=== PATIENT | female | born 1945 ===

== ENCOUNTER 2018-11-06 17:07 | Inpatient (IN) | payer MEDICARE ==
[2018-11-06 18:19] LABS: BASO # 0.1 K/uL (0.0-0.2); BASO % 0.8 % (0.0-2.0); EOS # 0.2 K/uL (0.0-0.7); HEMOGLOBIN 14.2 g/dL (12.0-16.0); LYMPH # 3.5 K/uL (1.0-4.3); LYMPH % 43.4 % (20.0-40.0); MEAN CELL VOLUME 97.9 fl (81.0-99.0); MEAN CORPUSCULAR HEMOGLOBIN 32.5 pg (27.0-31.0); MEAN CORPUSCULAR HGB CONC 33.2 g/dL (33.0-37.0); MONO # 0.7 K/uL (0.0-0.8); MONO % 8.1 % (0.0-10.0); NEUT # 3.7 K/uL (1.8-7.0); NEUT % 45.7 % (50.0-75.0); NRBC % 0.1 % (0.0-0.0); RBC 4.38 Mil/uL (3.80-5.20); RED CELL DISTRIBUTION WIDTH 13.1 % (11.5-14.5); WHITE BLOOD COUNT 8.1 K/uL (4.8-10.8)
[2018-11-06 18:25] LABS: PROTHROMBIN TIME 10.9 Seconds (9.8-13.1)
[2018-11-06 18:28] LABS: PARTIAL THROMBOPLASTIN TIME 27.4 Seconds (25.6-37.1)
[2018-11-06 18:30] LABS: D DIMER < 200 ng/mlDDU (0-230)
--- NOTE | 2018-11-06 18:32 | ED PDOC ---
Syncope/Near Syncope/Dizziness Time Seen by Provider: 11/06/18 17:30 Chief Complaint (Nursing): Dizziness/Lightheaded Chief Complaint (Provider): Dizziness/Lightheaded History Per: Patient History/Exam Limitations: no limitations Onset/Duration Of Symptoms: Days (x14) Current Symptoms Are (Timing): Still Present Additional Complaint(s): 72 y/o female with a PMHx of HTN presents to the ED for evaluation of dizziness, onset two weeks ago. Patient describes dizziness as feeling like she is going to fall. Patient states dizziness worsens when getting up from the bed. Patient reports dizziness is associated with generalized fatigue and a mild exercise intolerance. Patient additionally reports of a similar episode in the middle of September that was followed by a URI that only lasted three days and resolved spontaneously. Patient states symptoms have worsened this time. Of note, patient was seen by her PMD today who sent her here for further evaluation of Rapid At rial Fibrillation found on outpatient EKG. Denies shortness of breath, chest pain, palpitations, nausea and vomiting. PMD: [facility] Past Medical History Reviewed: Historical Data, Nursing Documentation, Vital Signs Vital Signs: Last Vital Signs Temp 98.2 F 11/06/18 17:16 Pulse 92 H 11/06/18 18:24 Resp 19 11/06/18 18:24 BP 108/64 11/06/18 18:24 Pulse Ox 99 11/06/18 18:24 - Medical History PMH: HTN, Hypothyroidism - Surgical History Surgical History: Back Surgery - Family History Family History: States: Hypertension - Social History Current smoker - smoking cessation education provided: No Alcohol: None Drugs: Denies - Home Medications Home Medications: Ambulatory Orders Medication Instructions Recorded Febuxostat [Uloric] 40 mg PO DAILY 11/06/18 Lisinopril [Zestril] 20 mg PO DAILY 11/06/18 - Allergies Allergies/Adverse Reactions: Allergies Allergy/AdvReac Type Severity Reaction Status Date / Time No Known Allergies Allergy Verified 11/06/18 17:29 Review of Systems ROS Statement: Except As Marked, All Systems Reviewed And Found Negative (as per HPI) Constitutional: Positive for: Other (generalized fatigue and mild exercis intolerance) Cardiovascular: Negative for: Chest Pain, Palpitations Respiratory: Negative for: Shortness of Breath Gastrointestinal: Negative for: Nausea, Vomiting Neurological: Positive for: Dizziness Physical Exam - Reviewed Nursing Documentation Reviewed: Yes Vital Signs Reviewed: Yes - Physical Exam Appears: Positive for: No Acute Distress (but tired) Head Exam: Positive for: ATRAUMATIC, NORMOCEPHALIC Skin: Positive for: Warm, Dry Eye Exam: Positive for: EOMI, PERRL. Negative for: Nystagmus ENT: Positive for: Normal ENT Inspection Neck: Positive for: Painless ROM, Supple Cardiovascular/Chest: Positive for: Tachycardia, Irregularly Irregular Respiratory: Positive for: Normal Breath Sounds. Negative for: Wheezing, Respiratory Distress Gastrointestinal/Abdominal: Positive for: Soft. Negative for: Tenderness Back: Positive for: Normal Inspection. Negative for: Muscle Spasm Extremity: Negative for: Pedal Edema Lymphatic: Negative for: Adenopathy Neurologic/Psych: Positive for: Alert, medical sociologist II-XII (intact), Oriented (x3). Negative for: Motor/Sensory Deficits, Other (Head Impulse Test and Test of Skew) - Laboratory Results Result Diagrams: 11/06/18 17:50 11/06/18 17:50 - ECG ECG Rhythm: Positive for: Atrial Fibrillation (with RVR ) Interpretation Of Abn EKG: Proxasymal Atrial Fibrillation O2 Sat by Pulse Oximetry: 99 (RA) Pulse Ox Interpretation: Normal - Critical Care Total Time (In Min): 30 Documented Critical Care: Time excludes all time spent performint seperately billable procedures Medical Decision Making Medical Decision Making: Time: 1731 Impression: New Onset Atrial Fibrillation Plan: -- Type and Screen -- EKG -- B-Type Natriuretic Peptide -- CMP -- Magnesium -- Phosphorus -- Thyroid Stimulating Hormone -- Troponin I -- ED Urine Dipstick -- CBC with Differentials -- D Dimer -- PTT -- Prothrombin Time -- Nurse Plastics -- IV Insertion Time: 1803 Plan: -- Sodium Chloride 0.9% 100 ml Cardizem 125 mg IV 5 mg/hr -- Cardizem 10 mg IVP Time: 1810 Plan: -- CT Head w/o Contrast -- Antivert 50 mg PO Time: 1903 CT RESULTS FINDINGS: BRAIN No acute intraparenchymal hemorrhage. No mass lesion. No CT evidence for acute territorial infarct. No midline shift or extra-axial collections. VENTRICLES: No hydrocephalus. ORBITS: The orbits are unremarkable. SINUSES AND MASTOIDS: The paranasal sinuses and mastoid air cells are clear. BONES: No fracture. SOFT TISSUES: Unremarkable. IMPRESSION: No acute intracranial abnormality. Electronically signed on Nov 06, 2018 7:04:47 PM EST by: Edgar Castano M.D., Certified by [facility], Diagnostic Radiology Time: 1955 -- Spoke to Dr. Kearns, medical service for hospitalization. No emergently significant lab abnormalities noted at this time. -- XR demonstrates no acute findings. Scribe Attestation: Documented by Cadence Brown, acting as a scribe for Lydia Reeves MD. Provider Scribe Attestation: All medical record entries made by the Scribe were at my direction and personally dictated by me. I have reviewed the chart and agree that the record accurately reflects my personal performance of the history, physical exam, medical decision making, and the department course for this patient. I have also personally directed, reviewed, and agree with the discharge instructions and disposition. Disposition - Clinical Impression Clinical Impression: Atrial fibrillation, Dizziness Counseled Patient/Family Regarding: Studies Performed, Diagnosis, Need For Followup - Disposition Disposition Time: 18:00 Condition: FAIR - Pt Status Changed To: Hospital Disposition Of: Inpatient - Admit Certification Admit to Inpatient:: After my assessment, the patient will require hospitalization for at least two midnights. This is because of the severity of symptoms shown, intensity of services needed, and/or the medical risk in this patient being treated as an outpatient. - POA Present On Arrival: None
[2018-11-06 18:42] LABS: B-TYPE NATRIURETIC PEPTIDE 472 pg/ml (0-900)
[2018-11-06 18:47] LABS: ALBUMIN 4.2 g/dL (3.5-5.0); ALT/SGPT 39 U/L (9-52); AST/SGOT 41 U/L (14-36); BLOOD UREA NITROGEN 24 mg/dl (7-17); CALCIUM 9.8 mg/dL (8.4-10.2); GFR NON-AFRICAN AMERICAN 40
[2018-11-07 06:47] LABS: URIC ACID 6.1 mg/Dl (2.2-7.5)
[2018-11-07 07:05] LABS: T4 6.51 ug/dl (5.5-11.0)
[2018-11-07 07:18] LABS: T3 0.98 nmol/L (1.49-2.60)
[2018-11-07] MEDS: Enoxaparin 30 mg Syringe SC SCH (10:55)
[2018-11-07] MEDS: Digoxin 125 mcg (0.125 mg) Tab PO SCH (11:01)
--- NOTE | 2018-11-07 12:04 | CP.PCM.CON ---
History of Present Illness - History of Present Illness History of Present Illness: I was asked to see patient by Dr Kearns. Patient seen 11/07/18 2265 Patient is a 72 year old female with HTN hypercholesterolemia who presents with 2 weeks aof dizziness and lighheadedness. The patient felt progressively worse and went to her primary medical doctor. She was found to be in atrial fibrillation with rapid ventricular response. She was started on cardizem drip. Her heart rate improved overnight. She denies current chest pain or dyspnea. Review of Systems - Constitutional Constitutional: absent: As Per HPI, Anorexia, Chills, Daytime Sleepiness, Excessive Sweating, Fatigue, Fever, Frequent Falls, Headache, Increased Appetite, Lethargy, Malaise, Night Sweats, Snoring, Sleep Apnea, Weight Gain, Weight Loss, Weakness, Other - EENT Eyes: absent: As Per HPI, Blind Spots, Blurred Vision, Change in Vision, D ecreased Night Vision, Diplopia, Discharge, Dry Eye, Exophthalmos, Floaters, Irritation, Itchy Eyes, Loss of Peripheral Vision, Pain, Photophobia, Requires Corrective Lenses, Sees Flashes, Spots in Vision, Tunnel Vision, Other Visual Disturbances, Loss of Vision, Other Ears: absent: As Per HPI, Decreased Hearing, Ear Discharge, Ear Pain, Tinnitus, Abnormal Hearing, Disequilibrium, Dizziness, Other Nose/Mouth/Throat: absent: As Per HPI, Epistaxis, Nasal Congestion, Nasal Discharge, Nasal Obstruction, Nasal Trauma, Nose Pain, Post Nasal Drip, Sinus Pain, Sinus Pressure, Bleeding Gums, Change in Voice, Dental Pain, Dry Mouth, Dysphagia, Halitosis, Hoarsness, Lip Swelling, Mouth Lesions, Mouth Pain, Odynophagia, Sore Throat, Throat Swelling, Tongue Swelling, Facial Pain, Neck Pain, Neck Mass, Other - Breasts Breasts: absent: As Per HPI, Change in Shape, Mass, Pain, Nipple Discharge, Nipple Inversion, Skin Changes, Swelling, Other - Cardiovascular Cardiovascular: Dyspnea - Respiratory Respiratory: absent: As Per HPI, Cough, Dyspnea, Hemoptysis, Dyspnea on Exertion, Wheezing, Snoring, Stridor, Pain on Inspiration, Chest Congestion, Excessive Mucous Production, Change in Mucous Color, Pain with Coughing, Other - Gastrointestinal Gastrointestinal: absent: As Per HPI, Abdominal Pain, Belching, Bloating, Change in Bowel Habits, Change in Stool Character, Coffee Ground Emesis, Constipation, Cramping, Diarrhea, Dyspepsia, Dysphagia, Early Satiety, Excessive Flatus, Fecal Incontinence, Heartburn, Hematemesis, Hematochezia, Loose Stools, Melena, Nausea, Odynophagia, Temesmus, Vomiting, Other - Genitourinary Genitourinary: absent: As Per HPI, Change in Urinary Stream, Difficulty Urinating, Dysuria, Flank Pain, Hematuria, Pyuria, Nocturia, Urinary Incontinence, Urinary Frequency, Urinary Hesitance, Urinary Urgency, Voiding Freq/Small Amts, Freq UTI, Hx Renal/Bladder Calculi, Hx /Renal Surgery, Bladder Distension, Other - Musculoskeletal Musculoskeletal: absent: As Per HPI, Abnormal Gait, Arthralgias, Atrophy, Back Pain, Deformity, Joint Swelling, Limited Range of Motion, Loss of Height, Muscle Cramps, Muscle Weakness, Myalgias, Neck Pain, Numbness, Radiating Pain into Limb, Stiffness, Tingling, Other - Integumentary Integumentary: absent: As Per HPI, Acne, Alopecia, Bleeding Lesions, Change in Hair, Change in Nails, Change in Pigmentation, Changing Lesions, Dry Skin, Erythema, Furuncle, Hirsutism, Lesions, New Lesions, Non-Healing Lesions, Photosensitivity, Pruritus, Rash, Skin Pain, Skin Ulcer, Sores, Striae, Swelling, Unusual Bruising, Wounds, Jaundice, Other - Neurological Neurological: Dizziness - Psychiatric Psychiatric: absent: As Per HPI, Abnormal Sleep Pattern, Anhedonia, Anxiety, Auditory Hallucinations, Behavioral Changes, Change in Appetite, Change in Libido, Confusion, Depression, Difficulty Concentrating, Hallucinations, Homicidal Ideation, Hopelessness, Irritability, Memory Loss, Mood Swings, Panic Attacks, Paranoia, Suicidal Ideation, Visual Hallucinations, Tactile Hallucinations, Other - Endocrine Endocrine: absent: As Per HPI, Change in Body Appearance, Change in Libido, Cold Intolorance, Deepening of Voice, Excessive Sweating, Fatigue, Flushing, Heat Intolorance, Increase in Ring/Shoe/Hat Size, Palpitations, Polydipsia, Polyphagia, Polyuria, Other - Hematologic/Lymphatic Hematologic: absent: As Per HPI, Easy Bleeding, Easy Bruising, Lymphadenopathy, Other Past Patient History - Tetanus Immunizations Tetanus Immunization: Unknown - Past Medical History & Family History Past Medical History?: Yes - Past Social History Alcohol: None Drugs: Denies - CARDIAC Hx Hypertension: Yes - PULMONARY Hx Respiratory Disorders: No - NEUROLOGICAL Hx Neurological Disorder: No - HEENT Hx HEENT Problems: No - RENAL Hx Chronic Kidney Disease: No - ENDOCRINE/METABOLIC Hx Hypothyroidism: Yes - HEMATOLOGICAL/ONCOLOGICAL Hx Blood Disorders: No - INTEGUMENTARY Hx Dermatological Problems: No - MUSCULOSKELETAL/RHEUMATOLOGICAL Hx Musculoskeletal Disorders: Yes (Gouty arthritis) Hx Falls: No - GASTROINTESTINAL Hx Gastrointestinal Disorders: No - GENITOURINARY/GYNECOLOGICAL Hx Genitourinary Disorders: No - PSYCHIATRIC Hx Psychophysiologic Disorder: No - SURGICAL HISTORY Hx Arthroscopy: Yes (left knee Dec 2014) - ANESTHESIA Hx Anesthesia: Yes Hx Anesthesia Reactions: No Hx Malignant Hyperthermia: No Meds Allergies/Adverse Reactions: Allergies Allergy/AdvReac Type Severity Reaction Status Date / Time No Known Allergies Allergy Verified 11/06/18 17:29 - Medications Medications: Current Medications Acetaminophen (Tylenol 325mg Tab) 650 mg PO Q6 PRN PRN Reason: Pain, Mild (1-3) Digoxin (Digoxin) 0.125 mg PO DAILY [facility] Last Admin: 11/07/18 11:01 Dose: 0.125 mg Diltiazem HCl (Cardizem Cd) 180 mg PO DAILY [facility] Enoxaparin Sodium (Lovenox) 30 mg SC DAILY [facility]; Protocol Last Admin: 11/07/18 10:55 Dose: 30 mg Diltiazem HCl 125 mg/ Sodium (Chloride) 125 mls @ 5 mls/hr IV .Q24H ONE; Protocol Stop: 11/07/18 18:29 Last Admin: 11/06/18 18:31 Dose: 5 mg/hr, 5 mls/hr Physical Exam - Constitutional Appears: Non-toxic - Head Exam Head Exam: NORMAL INSPECTION - Eye Exam Eye Exam: Normal appearance - ENT Exam ENT Exam: Mucous Membranes Moist - Neck Exam Neck exam: Positive for: Full Rom - Respiratory Exam Respiratory Exam: NORMAL BREATHING PATTERN - Cardiovascular Exam Cardiovascular Exam: Irregular Rhythm - GI/Abdominal Exam GI & Abdominal Exam: Normal Bowel Sounds - Rectal Exam Rectal Exam: Deferred - Extremities Exam Extremities exam: Positive for: normal inspection, pedal pulses present. Negative for: joint swelling, pedal edema, tenderness - Back Exam Back exam: NORMAL INSPECTION - Neurological Exam Neurological exam: Alert, Oriented x3 - Psychiatric Exam Psychiatric exam: Normal Affect - Skin Skin Exam: Normal Color Results - Vital Signs Recent Vital Signs: Last Vital Signs Temp 97.6 F 11/07/18 08:13 Pulse 75 11/07/18 09:00 Resp 18 11/07/18 08:13 BP 107/58 L 11/07/18 08:13 Pulse Ox 99 11/07/18 08:13 - Labs Result Diagrams: 11/06/18 17:50 11/06/18 17:50 Labs: Laboratory Results - last 24 hr 11/06/18 11/06/18 11/06/18 17:50 17:50 17:50 WBC 8.1 RBC 4.38 Hgb 14.2 Hct 42.9 MCV 97.9 MCH 32.5 H MCHC 33.2 RDW 13.1 Plt Count 144 MPV 10.0 Neut % (Auto) 45.7 L Lymph % (Auto) 43.4 H [place] % (Auto) 8.1 Eos % (Auto) 2.0 Baso % (Auto) 0.8 Neut # (Auto) 3.7 Lymph # (Auto) 3.5 [place] # (Auto) 0.7 Eos # (Auto) 0.2 Baso # (Auto) 0.1 PT 10.9 INR 1.0 APTT 27.4 D-Dimer, Quantitative < 200 Sodium 141 Potassium 5.0 Chloride 108 H Carbon Dioxide 24 Anion Gap 14 BUN 24 H Creatinine 1.3 H Est GFR ( Amer) 49 Est GFR (Non-Af Amer) 40 Random Glucose 102 Uric Acid Calcium 9.8 Phosphorus 4.3 Magnesium 2.1 Total Bilirubin 0.5 AST 41 H D ALT 39 Alkaline Phosphatase 130 H D Troponin I < 0.0120 NT-Pro-B Natriuret Pep 472 Total Protein 8.3 H Albumin 4.2 Globulin 4.1 H Albumin/Globulin Ratio 1.0 Triglycerides Cholesterol LDL Cholesterol Direct HDL Cholesterol Thyroxine (T4) Total T3 TSH 3rd Generation 6.43 H Blood Type Blood Type Confirm Antibody Screen BBK History Checked 11/06/18 11/06/18 11/07/18 17:50 19:26 05:30 WBC RBC Hgb Hct MCV MCH MCHC RDW Plt Count MPV Neut % (Auto) Lymph % (Auto) [place] % (Auto) Eos % (Auto) Baso % (Auto) Neut # (Auto) Lymph # (Auto) [place] # (Auto) Eos # (Auto) Baso # (Auto) PT INR APTT D-Dimer, Quantitative Sodium Potassium Chloride Carbon Dioxide Anion Gap BUN Creatinine Est GFR ( Amer) Est GFR (Non-Af Amer) Random Glucose Uric Acid 6.1 Calcium Phosphorus Magnesium Total Bilirubin AST ALT Alkaline Phosphatase Troponin I NT-Pro-B Natriuret Pep Total Protein Albumin Globulin Albumin/Globulin Ratio Triglycerides 119 Cholesterol 189 LDL Cholesterol Direct 123 HDL Cholesterol 47 Thyroxine (T4) 6.51 Total T3 0.980 L TSH 3rd Generation 5.34 H Blood Type O POSITIVE Blood Type Confirm O POSITIVE Antibody Screen Negative BBK History Checked No verified bt - EKG Data EKG Interpreted by: Myself Assessment & Plan (1) Atrial fibrillation Assessment and Plan: new onset and likely contributor to the patient's symptoms. Recommend change to oral cardizem. rate is controlled. needs echocardiogram to assess LV function. furhte rmanagement based upon echo. Status: Acute
--- NOTE | 2018-11-07 12:15 | CT ---
Date of service: 11/06/2018 PROCEDURE: CT HEAD WITHOUT CONTRAST. HISTORY: DIZZINESS HEADACHE COMPARISON: None available. TECHNIQUE: Axial computed tomography images were obtained through the head/brain without intravenous contrast. Radiation dose: Total exam DLP = 906.0 mGy-cm. This CT exam was performed using one or more of the following dose reduction techniques: Automated exposure control, adjustment of the mA and/or kV according to patient size, and/or use of iterative reconstruction technique. FINDINGS: HEMORRHAGE: No intracranial hemorrhage. BRAIN: There appears to be some very mild chronic periventricular white matter ischemic changes extending peripherally into the deep and subcortical white matter both cerebral hemispheres. Few scattered chronic bilateral basal nuclei lacunar type infarcts also present. Note the possibility of a small hyperacute infarct cannot be excluded on this exam the the. Clinical correlation recommended Mild vascular calcifications both carotid siphons the left vertebral artery. VENTRICLES: No obstructive hydrocephalus. CALVARIUM: Unremarkable. PARANASAL SINUSES: Diminutive appearing right maxillary sinus likely congenital and/or developmental.. Frontal sinuses hypoplastic. MASTOID AIR CELLS: Well-developed and currently well-aerated. OTHER FINDINGS: None. IMPRESSION: Mild chronic white matter and few scattered chronic bilateral basal nuclei lacunar type infarcts. Note that the possibility of a small hyperacute infarct cannot be excluded on this study..
[2018-11-07] MEDS: diltiaZEM 180 mg/24 Hours CD Cap PO SCH (13:09)
--- NOTE | 2018-11-07 14:11 | RAD ---
Date of service: 11/06/2018 HISTORY: New onset afib COMPARISON: No prior. FINDINGS: LUNGS: Mild bibasilar atelectasis left greater than right; developing lower lobe infiltrates could be excluded with follow-up radiographs. PLEURA: No significant pleural effusion identified, no pneumothorax apparent. CARDIOVASCULAR: Mild aortic atherosclerotic calcification present. Normal cardiac size. No pulmonary vascular congestion. OSSEOUS STRUCTURES: Mild multilevel degenerative spondylosis of the thoracic spine.. VISUALIZED UPPER ABDOMEN: Normal. OTHER FINDINGS: None. IMPRESSION: No active disease.
--- NOTE | 2018-11-07 20:06 | CARD ---
APPROVED REPORT Date of service: 11/06/2018 EKG Measurement Heart [id number] <Conclusion> Sinus rhythm with short runs of atrial fibrillation and consecutive premature atrial complexes. Abnormal Electrocardiogram
--- NOTE | 2018-11-07 20:57 | CARD ---
APPROVED REPORT Date of service: 11/06/2018 EKG Measurement Heart [id number] <Conclusion> Sinus rhythm with short runs of atrial fibrillation and premature atrial complexes. Abnormal Electrocardiogram
--- NOTE | 2018-11-08 07:40 | CP.PCM.HP ---
History of Present Illness - History of Present Illness History of Present Illness: This is a 72 y/o female with hx of HTN and hyperlipidemia admitted for 2 weeks on and off dizziness and noted have new onset atrial fibrillation with RVR by her PMD hence was sent to [facility] for further evaluation. She denies chest pain or SOB. Past Patient History - Tetanus Immunizations Tetanus Immunization: Unknown - Past Medical History & Family History Past Medical History?: Yes - Past Social History Alcohol: None Drugs: Denies - CARDIAC Hx Hypertension: Yes - PULMONARY Hx Respiratory Disorders: No - NEUROLOGICAL Hx Neurological Disorder: No - HEENT Hx HEENT Problems: No - RENAL Hx Chronic Kidney Disease: No - ENDOCRINE/METABOLIC Hx Hypothyroidism: Yes - HEMATOLOGICAL/ONCOLOGICAL Hx Blood Disorders: No - INTEGUMENTARY Hx Dermatological Problems: No - MUSCULOSKELETAL/RHEUMATOLOGICAL Hx Musculoskeletal Disorders: Yes (Gouty arthritis) Hx Falls: No - GASTROINTESTINAL Hx Gastrointestinal Disorders: No - GENITOURINARY/GYNECOLOGICAL Hx Genitourinary Disorders: No - PSYCHIATRIC Hx Psychophysiologic Disorder: No - SURGICAL HISTORY Hx Arthroscopy: Yes (left knee Dec 2014) - ANESTHESIA Hx Anesthesia: Yes Hx Anesthesia Reactions: No Hx Malignant Hyperthermia: No Meds Allergies/Adverse Reactions: Allergies Allergy/AdvReac Type Severity Reaction Status Date / Time No Known Allergies Allergy Verified 11/06/18 17:29 Results - Vital Signs Recent Vital Signs: Last Vital Signs Temp 98.6 F 11/08/18 05:26 Pulse 62 11/08/18 05:26 Resp 18 11/08/18 05:26 BP 112/65 11/08/18 05:26 Pulse Ox 98 11/08/18 05:26 - Labs Result Diagrams: 11/06/18 17:50 11/06/18 17:50
[2018-11-08 07:55] VITALS: RESP 20
[2018-11-08] MEDS: Enoxaparin 30 mg Syringe SC SCH (09:39)
[2018-11-08] MEDS: diltiaZEM 180 mg/24 Hours CD Cap PO SCH (09:39)
[2018-11-08 09:44] VITALS: PULSE 80
[2018-11-08] MEDS: Digoxin 125 mcg (0.125 mg) Tab PO SCH (09:44)
--- NOTE | 2018-11-08 11:40 | CP.PCM.PCO ---
Assessment/Plan - Assessment and Plan (Free Text) Assessment: Patient seen and examined Denied chest pain, shortness of breath converted from Afib to SR with PACS, Plan discussed with Dr Kearns and Dr De La Cruz, cont cardizem PO daily follow up outpatient for echo recommendations with Dr De La Cruz and further manag ement.
[2018-11-08 12:04] VITALS: BP 124/85; PULSE 85; TEMP 98.3; O2SAT 96
--- NOTE | 2018-11-09 02:58 | CARD ---
APPROVED REPORT Date of service: 11/08/2018 EXAM: Two-dimensional and M-mode echocardiogram with Doppler and color Doppler. Other Information Quality : GoodRhythm : Atrial Fibrillation INDICATION Atrial Fibrillation 2D DIMENSIONS IVSd0.92 (0.7-1.1cm)LVDd4.37 (3.9-5.9cm) LVOT Diameter2.24 (1.8-2.4cm)PWd0.87 (0.7-1.1cm) IVSs1.23 (0.8-1.2cm)LVDs2.56 (2.5-4.0cm) FS (%) 41.4 %PWs1.18 (0.8-1.2cm) M-Mode DIMENSIONS Left Atrium (MM)3.94 (2.5-4.0cm)IVSd0.61 (0.7-1.1cm) Aortic Root3.25 (2.2-3.7cm)LVDd4.85 (4.0-5.6cm) Aortic Cusp Exc.1.38 (1.5-2.0cm)PWd0.97 (0.7-1.1cm) IVSs0.94 cmFS (%) 22 % LVDs3.81 (2.0-3.8cm)PWs1.16 cm Mitral Valve E/A ratio0.0 TDI E/Lateral E'0.0E/Medial E'0.0 Tricuspid Valve TR Peak [id number] [id number] Peak Gr.27mmHg [id number] LEFT VENTRICLE The left ventricle is normal size. There is normal left ventricular wall thickness. The left ventricular systolic function is normal. The estimated ejection fraction is 60-65% No regional wall motion abnormalities noted.. The left ventricular diastolic function cannot be assessed due to underlying atrial fibrillation. No left ventricle thrombus noted on this study. There is no ventricular septal defect visualized. There is no left ventricular aneurysm. There is no mass noted in the left ventricle. RIGHT VENTRICLE The right ventricle is normal size. There is normal right ventricular wall thickness. The right ventricular systolic function is normal. ATRIA The left atrium is borderline dilated. The right atrium size is normal. The interatrial septum is intact with no evidence for an atrial septal defect. AORTIC VALVE The aortic valve is normal in structure. No aortic regurgitation is present. There is no aortic valvular stenosis. There is no aortic valvular vegetation. MITRAL VALVE The mitral valve is normal in structure. There is no evidence of mitral valve prolapse. There is no mitral valve stenosis. There is trace mitral valve regurgitation noted. TRICUSPID VALVE The tricuspid valve is normal in structure. There is mild tricuspid valve regurgitation noted. RVSP is calculated at 32 mm Hg. There is no tricuspid valve prolapse or vegetation. There is no tricuspid valve stenosis. PULMONIC VALVE The pulmonary valve is normal in structure. There is no pulmonic valvular regurgitation. There is no pulmonic valvular stenosis. GREAT VESSELS The aortic root is normal in size. The ascending aorta is normal in size. The pulmonary artery is normal. The IVC is normal in size and collapses >50% with inspiration. PERICARDIAL EFFUSION There is no pericardial effusion. There is no pleural effusion. <Conclusion> The estimated ejection fraction is 60-65% The left ventricular diastolic function cannot be assessed due to underlying atrial fibrillation. The left atrium is borderline dilated. There is mild tricuspid valve regurgitation noted. RVSP is calculated at 32 mm Hg.
== END 2018-11-08 13:06 | disposition home or self-care (01) | DRG 310 ==
LOC: H.ER 17:07 → H.ERHOLD 19:53 → H.TEL 22:10
PROVIDERS: ADMIT Family Medicine; ATTEND Family Medicine
DX: I48.91 Unspecified atrial fibrillation (principal); E03.9 Hypothyroidism, unspecified; I10 Essential (primary) hypertension; E78.5 Hyperlipidemia, unspecified; E78.00 Pure hypercholesterolemia, unspecified; M10.9 Gout, unspecified